=== PATIENT | female | born 1985 | race Caucasian/White ===

== ENCOUNTER 2022-12-21 16:16 | Emergency (ER) | payer OTHER ==
[2022-12-21 16:31] VITALS: BP 175/93; PULSE 68; RESP 13; TEMP 98.7; BMI 31.6
[2022-12-21] MEDS ORDERED: ONDANSETRON 4 MG/2 ML VIAL IVPUSH ONE (17:17)
[2022-12-21] MEDS ORDERED: ACETAMINOPHEN 1000 MG/100 ML BAG IVPB ONE (17:17)
[2022-12-21] MEDS ORDERED: SODIUM CHLORIDE 0.9% 500 ML INFUS.BAG IV ONE (17:17)
[2022-12-21] MEDS ORDERED: ONDANSETRON 4 MG/2 ML VIAL ONE (17:27)
[2022-12-21] MEDS ORDERED: ACETAMINOPHEN INJECTION 100 ML IVPB ONE (17:27)
[2022-12-21 18:07] LABS: BASO % 0.2 % (0-2.0); EOS % 0.1 % (0-4.5); HEMATOCRIT 38.5 % (32.4-45.2); HEMOGLOBIN 12.9 GM/dL (10.7-15.3); LYMPH % 6.9 % (8-40); MCH 27.5 pg (25.7-33.7); MCHC 33.5 g/dl (32.0-36.0); MEAN CELL VOLUME 82.2 fl (80-96); MEAN PLT VOLUME 8.7 fl (7.5-11.1); MONO % 3.2 % (3.8-10.2); NEUT % 89.6 % (42.8-82.8); PLATELET COUNT 231 10^3/uL (134-434); RBC 4.68 M/mm3 (3.60-5.2); RDW 14.8 % (11.6-15.6); WHITE BLOOD COUNT 10.6 K/mm3 (4.0-10.0)
[2022-12-21 18:32] LABS: POTASSIUM 3.8 mmol/L (3.5-5.1)
[2022-12-21 18:34] LABS: CALCIUM 8.7 mg/dL (8.5-10.1)
[2022-12-21 18:35] LABS: ALBUMIN 3.8 g/dl (3.4-5.0); BLOOD UREA NITROGEN 8.9 mg/dL (7-18)
[2022-12-21 18:38] LABS: CREATININE 0.7 mg/dL (0.55-1.3)
[2022-12-21 18:39] LABS: BILIRUBIN,TOTAL 0.5 mg/dL (0.2-1)
[2022-12-21] MEDS ORDERED: ONDANSETRON 4 MG TABLET PO ONE (20:54)
[2022-12-21] MEDS ORDERED: IBUPROFEN 600 MG TABLET (FP) PO ONE ×2 (20:54→20:58)
[2022-12-21] MEDS ORDERED: ONDANSETRON *ODT* 4 MG TABLET ONE (20:59)
== END 2022-12-21 21:04 | disposition home or self-care (01) ==
LOC: JER 16:16
PROC: 3E033NZ Introduction of Analgesics, Hypnotics, Sedatives into Peripheral Vein, Percutaneous Approach (ICD-10-PCS; principal; 2022-12-21)
PROC: 3E033GC Introduction of Other Therapeutic Substance into Peripheral Vein, Percutaneous Approach (ICD-10-PCS; 2022-12-21)
PROC: 3E033NZ Introduction of Analgesics, Hypnotics, Sedatives into Peripheral Vein, Percutaneous Approach (ICD-10-PCS; 2022-12-21)
DX: R10.13 Epigastric pain (principal); R11.2 Nausea with vomiting, unspecified; K80.20 Calculus of gallbladder without cholecystitis without obstruction
CPT/HCPCS: 36415; 76705-TC; 80053; 83690; 84703; 85025; 99284-25